=== PATIENT | male | born 1980 | race Asian ===

== ENCOUNTER 2017-03-28 21:12 | Emergency (ER) | payer SELFPAY ==
[~2017-03-28] VITALS: Ht 154.9 cm; Wt 59.4 kg
[2017-03-29] MEDS ORDERED: IBUPROFEN 600 MG TAB PO ONE (01:30)
[2017-03-29 01:51] VITALS: BP 132/75
== END 2017-03-29 02:04 | disposition home or self-care (01) ==
LOC: ER 21:17
DX: S52.501A Unspecified fracture of the lower end of right radius, initial encounter for closed fracture (principal); V49.59XA Passenger injured in collision with other motor vehicles in traffic accident, initial encounter; Y93.89 Activity, other specified; Y99.8 Other external cause status; Y92.410 Unspecified street and highway as the place of occurrence of the external cause
CPT/HCPCS: 29125; 73100